=== PATIENT | female | born 1930 | race Caucasian/White ===

== ENCOUNTER → 2016-02-28 | Outpatient (CLI) | payer MEDICARE ==
[~2016-02-28] MED LIST: ALENDRONATE SOD70 MG PO; ALLOPURINOL100 MG PO; ALTACE10 M1 PO; AMLODIPINE BES2.5 MG PO; ASPIRIN325 M1 PO; B-121000 MCG PO; B/P PILL PO; CHOLESTEROL PILL PO; CLARINEX5 MG PO; CLOPIDOGREL75 M2 PO; DARVOCET-N 1001 EACH PO; FENOFIBRATE MI134 MG PO; FIORICET 325 MG1 TAB PO; GLYBURIDE AND M1 TA1 PO; GLYBURIDE-METFORMIN OR; GLYBURIDE-METFORMIN PO; GLYBURIDE/METFO1 TA1 PO; HYDROCHLOROTHIA25 M1 PO; INSULIN GL100 UNITS1 SC; LEVOFLOXACIN 7750 M1 PO; METOPROLOL TAR100 MG PO; NEXIUM40 MG PO; PANTOPRAZOLE SO40 M1 PO; PLAVIX75 MG PO; TRICOR 145 MG145 MG PO; VITAMIN D32000 I2 PO; ZETIA10 MG PO; [UNRECOGNIZED DRUG - REMARK] OR
--- NOTE | 2016-02-28 17:37 | RADIOLOGY REPORT PS360 ---
CERVICAL SPINE 4 OR 5 VIEWS ORDERING PHYSICIAN : Earl Renner MD PATIENT AGE: 85 years GENDER: Female INDICATION: NECK PAIN no known injury TECHNIQUE: Five-view cervical spine COMPARISON: CT cervical spine from March 24, 2015. FINDINGS Diffuse demineralization. Osteopenia. Actually disc spaces are fairly well maintained but it is the other hypertrophic features that are most striking. C1/2. Early arthritic changes and narrowing at the articulations lateral masses. Dens intact. There is incomplete segmentation and fusion between C2 and C3 vertebral bodies and posterior elements. . C3/4 there is exuberant prominent facet hypertrophy bilaterally.. Yields bilateral foraminal encroachment C4/5 prominent posterior hypertrophic ridging and spondylosis with prominent facet hypertrophy. Prominent bilateral foraminal encroachment C5/6. Again prominent prominent facet hypertrophy and prominent bilateral foraminal encroachment. Left greater than right. C6/7. Disc intact bilateral facet hypertrophy foraminal encroachment most evident to the righ C7/T1 mild facet arthropathy most evident to the right CT1/T2 intact. Apices the lungs clear. Previous sternotomy. ---IMPRESSION Incomplete segmentation C2-C3 Prominent degenerative changes throughout C-spine. Prominent hypertrophic facets dominate as the degenerative pattern this C-spine. ....And yield multilevel foraminal encroachment There is cervical spondylosis, posterior ridging & degenerated disc at C3/4
== END ==
LOC: RAD 11:25
DX: M53.82 Other specified dorsopathies, cervical region (principal)